=== PATIENT | male | born 1950 | race Caucasian/White ===

== ENCOUNTER 2021-12-21 07:54 | Outpatient (CLI) | payer MEDICARE ==
[2021-12-21 09:37] LABS: #Eosinphils 0.3 10x3/uL (0.0-0.5); #Monocytes 0.4 10x3/uL (0.0-1.1); #Neutrophils 3.8 10x3/uL (1.5-8.4); %Basophils 0.5 % (0.0-2.0); %Eosinophils 5.3 % (0.0-6.0); %Lymphocytes 26.5 % (18.0-47.0); %Monocytes 6.9 % (0.0-10.0); %Neutrophils 60.6 % (40.0-75.0); Hemoglobin 12.9 g/dL (13.5-17.5); Mean Corpuscular HGB CONC 33.4 g/dL (32.0-36.0); Mean Corpuscular Hemoglobin 29.9 pg (27.0-33.0); Mean Corpuscular Volume 89.4 fl (81.2-95.1); Mean Platelet Volume 10.1 fl (7.4-10.4); Platelet Count 166 10x3/uL (150-450); RBC Distribution Width 13.4 % (11.5-14.5); Red Blood Cell (RBC) Count 4.32 10x6/uL (4.32-5.72); White Blood Cell (WBC) Count 6.3 10x3/uL (3.5-10.5)
[2021-12-21 09:58] LABS: Anion Gap 16 mmol/L (10-20); BUN (Urea Nitrogen) 22 mg/dL (8.4-25.7); Calc. Creatinine Clearance 0 mL/min (70-130); Calcium 9.1 mg/dL (7.8-10.44); Carbon Dioxide 23 mmol/L (23-31); Chloride 113 mmol/L (98-107); Glucose 97 mg/dL (80-115); Potassium 4.5 mmol/L (3.5-5.1); Sodium 147 mmol/L (136-145)
[2021-12-21 16:44] LABS: SARS-CoV-2 PCR by NAA Not Detected (NotDetected)
== END 2021-12-21 07:55 | disposition home or self-care (01) ==
LOC: LABBT 07:54
PROVIDERS: ATTEND Orthopaedic Surgery Hand Surgery
DX: Z01.818 Encounter for other preprocedural examination (principal); G56.01 Carpal tunnel syndrome, right upper limb; G56.02 Carpal tunnel syndrome, left upper limb; Z20.822 Contact with and (suspected) exposure to COVID-19
CPT/HCPCS: 80048; 85025; 93005; U0003; U0005; 93010

== ENCOUNTER 2021-12-24 06:51 | Day surgery (SDC) | payer MEDICARE ==
[2021-12-23 09:29] VITALS: BMI 35.9
[2021-12-24] MEDS ORDERED: Neomycin-Polymyxin 1 ML AMP ONE (09:52)
[2021-12-24] MEDS ORDERED: Betamet Acet/Betamet Na Ph 30 MG/5 ML VIAL ONE (09:52)
[2021-12-24] MEDS ORDERED: Bupivacaine PF 0.5% 30 ML VIAL ONE (09:52)
[2021-12-24] MEDS ORDERED: Bacitracin Zinc Ointment 30 gm TUBE ONE (09:52)
[2021-12-24] MEDS ORDERED: CEFAZOLIN 2 GM VIAL ONE (10:22)
[2021-12-24] MEDS ORDERED: Midazolam HCl 2 mg/2 ml Vial ONE (10:22)
[2021-12-24] MEDS ORDERED: HYDROmorphone 2 MG/ML VIAL ONE (10:22)
[2021-12-24] MEDS ORDERED: Sodium Chloride 0.9% 100 ML ONE (10:22)
[2021-12-24] MEDS ORDERED: fentaNYL Citrate/PF 100 MCG/2 ML SYRINGE ONE (10:22)
[2021-12-24] MEDS ORDERED: Levofloxacin 500 mg/D5W 100 ml Premix Bag ONE (10:30)
[2021-12-24] MEDS ORDERED: Lidocaine 1% PF 5 ML VIAL ONE (10:38)
[2021-12-24] MEDS ORDERED: Ondansetron PF 4 MG/2 ML Vial ONE (10:38)
[2021-12-24] MEDS ORDERED: PHENYLEPHRINE-NS 100 MCG/ML 10 ML SYRINGE ONE ×2 (10:38→11:22)
[2021-12-24] MEDS ORDERED: PROPOFOL 200 MG/20 ML VIAL ONE (10:38)
[2021-12-24] MEDS ORDERED: ePHEDrine 50 MG/ML VIAL ONE (10:38)
[2021-12-24] MEDS ORDERED: ePHEDrine Sulfate 50 MG/10 ML VIAL ONE (11:22)
[2021-12-24] MEDS ORDERED: Ketorolac Tromethamine 30 MG/ML VIAL ONE (12:17)
[2021-12-24] MEDS ORDERED: Fentanyl 250 MCG/5 ML VIAL ONE (12:26)
[2021-12-24] MEDS ORDERED: hydrALAZINE 20 MG/ML VIAL ONE (13:25)
== END 2021-12-24 15:15 | disposition home or self-care (01) ==
LOC: SDC 06:51
PROVIDERS: ATTEND Orthopaedic Surgery Hand Surgery
PROC: 01N50ZZ Release Median Nerve, Open Approach (ICD-10-PCS; principal; 2021-12-24)
PROC: 01N50ZZ Release Median Nerve, Open Approach (ICD-10-PCS; 2021-12-24)
DX: G56.03 Carpal tunnel syndrome, bilateral upper limbs (principal); E78.5 Hyperlipidemia, unspecified; I10 Essential (primary) hypertension; Z79.82 Long term (current) use of aspirin; Z79.899 Other long term (current) drug therapy
CPT/HCPCS: J0360; J0702; J1170; J1885; J1956; J2250; J3010; J3490; S0020

== ENCOUNTER 2022-06-28 07:27 | Observation (INO) | payer MEDICARE ==
[2022-06-27 12:19] VITALS: BMI 35.9
[2022-06-28] MEDS ORDERED: Tranexamic Acid 1,000 MG/10 ML VIAL ONE (08:06)
[2022-06-28] MEDS ORDERED: Vancomycin (BATCH) 1.5 GRAM/300 ML BAG ONE (08:06)
[2022-06-28] MEDS ORDERED: Sodium Chloride 0.9% 100 ML ONE ×2 (08:06→10:59)
[2022-06-28 08:52] LABS: SARS-CoV-2 NAA Rapid Test Not Detected (NotDetected)
[2022-06-28] MEDS ORDERED: Acetaminophen 500 MG TAB ONE (08:58)
[2022-06-28] MEDS ORDERED: FENTANYL 50 MCG/ML 1 ML VIAL ONE (09:31)
[2022-06-28] MEDS ORDERED: Ropivacaine 0.5% HCl/PF (150 MG/30 ML VIAL) ONE (09:31)
[2022-06-28] MEDS ORDERED: Midazolam HCl 2 mg/2 ml Vial ONE (09:31)
[2022-06-28] MEDS ORDERED: diphenhydrAMINE 25 MG CAP PO PRN (10:45)
[2022-06-28] MEDS ORDERED: Ondansetron PF 4 MG/2 ML Vial IVP PRN (10:45)
[2022-06-28] MEDS ORDERED: HYDROcodone/Acetaminophen 10/325 mg Tablet PO PRN (10:45)
[2022-06-28] MEDS ORDERED: FENTANYL 50 MCG/ML 1 ML VIAL SLOW IVP PRN ×2 (10:45)
[2022-06-28] MEDS ORDERED: Zolpidem Tartrate 5 MG TAB PO PRN (10:45)
[2022-06-28] MEDS ORDERED: Promethazine HCl 25 MG/ML VIAL IM PRN (10:45)
[2022-06-28] MEDS ORDERED: Acetaminophen 325 MG TAB PO PRN (10:45)
[2022-06-28] MEDS ORDERED: Propofol 500 MG/50 ML VIAL ONE (10:52)
[2022-06-28] MEDS ORDERED: Propofol 1,000 MG/100 ML VIAL IV ONE (10:52)
[2022-06-28] MEDS ORDERED: CEFAZOLIN 2 GM VIAL ONE (10:59)
[2022-06-28] MEDS ORDERED: ePHEDrine 50 MG/ML VIAL ONE (11:45)
[2022-06-28] MEDS ORDERED: Bupivacaine PF 0.5% 30 ML VIAL ONE (11:49)
[2022-06-28] MEDS ORDERED: fentaNYL PF 100 MCG/2 ML SYRINGE ONE (12:37)
[2022-06-28] MEDS ORDERED: Ketorolac Tromethamine 30 MG/ML VIAL ONE (15:23)
[2022-06-28] MEDS: Ketorolac Tromethamine 30 MG/ML VIAL IVP SCH ×2 (15:25→21:06)
[2022-06-28] MEDS: Sodium Chloride 0.9% 1,000 ML IV SCH ×2 (17:33→23:54)
[2022-06-28] MEDS: HYDROcodone/Acetaminophen 10/325 mg Tablet PO PRN ×2 (19:00→23:20)
[2022-06-28] MEDS: CEFAZOLIN 2 GM in Sodium Chloride 0.9% 100 ML IVPB SCH (20:51)
[2022-06-28] MEDS ORDERED: Lisinopril 5 MG TAB PO SCH (21:00)
[2022-06-28] MEDS ORDERED: Atorvastatin Calcium 10 MG TAB PO SCH (21:00)
[2022-06-28] MEDS ORDERED: Allopurinol 300 MG TAB PO SCH (21:00)
[2022-06-28] MEDS: Aspirin 81 mg Enteric Coated Tablet PO SCH (21:06)
[2022-06-29] MEDS: CEFAZOLIN 2 GM in Sodium Chloride 0.9% 100 ML IVPB SCH (04:25)
[2022-06-29] MEDS: HYDROcodone/Acetaminophen 10/325 mg Tablet PO PRN ×2 (04:25→08:06)
[2022-06-29] MEDS: Ketorolac Tromethamine 30 MG/ML VIAL IVP SCH (05:14)
[2022-06-29 06:01] LABS: Hemoglobin 11.5 g/dL (14.0-18.0); Mean Corpuscular HGB CONC 33.1 g/dL (32.0-36.0); Mean Corpuscular Hemoglobin 31.1 pg (27.0-31.0); Mean Corpuscular Volume 93.8 fl (78.0-98.0); Mean Platelet Volume 7.6 fL (7.4-10.4); Platelet Count 122 10x3/uL (130-400); RBC Distribution Width 12.3 % (11.5-14.5); Red Blood Cell (RBC) Count 3.69 mill/uL (4.70-6.10); White Blood Cell (WBC) Count 6.3 10x3/uL (4.8-10.8)
[2022-06-29] MEDS ORDERED: Ferrous Gluconate 324 MG TAB PO SCH (08:00)
[2022-06-29] MEDS: Sodium Chloride 0.9% 1,000 ML IV SCH (08:04)
[2022-06-29] MEDS: Aspirin 81 mg Enteric Coated Tablet PO SCH (08:06)
[2022-06-29] MEDS ORDERED: Multivitamin W/ Minerals 1 TAB PO SCH (09:00)
[2022-06-29] MEDS ORDERED: Senokot S 8.6-50 MG TAB PO SCH (09:00)
[2022-06-29 09:45] VITALS: BP 118/72; TEMP 99.6
[2022-06-30] MEDS ORDERED: Meloxicam 15 MG TAB PO SCH (21:00)
== END 2022-06-29 11:16 | disposition home or self-care (01) ==
LOC: SDC 07:27 → SURG A 16:44
PROVIDERS: ADMIT Orthopaedic Surgery; ATTEND Orthopaedic Surgery
PROC: 0SR904A Replacement of Right Hip Joint with Ceramic on Polyethylene Synthetic Substitute, Uncemented, Open Approach (ICD-10-PCS; principal; 2022-06-28)
DX: M16.11 Unilateral primary osteoarthritis, right hip (principal); E78.5 Hyperlipidemia, unspecified; I10 Essential (primary) hypertension; Z79.1 Long term (current) use of non-steroidal anti-inflammatories (NSAID); Z79.82 Long term (current) use of aspirin; Z79.899 Other long term (current) drug therapy; Z96.653 Presence of artificial knee joint, bilateral; Z20.822 Contact with and (suspected) exposure to COVID-19
CPT/HCPCS: 27130; 73502; 85027; 97110; 97116 ×2; 97530; 97535; C1776; J3010; J3370; U0002; 36415; J1885; J2250; J2704; J2795; J3490; J7050; S0020